=== PATIENT | male | born 1945 | race Caucasian/White ===

== ENCOUNTER → 2016-08-15 | Outpatient (CLI) | payer OTHER ==
[2016-08-15 10:49] LABS: BASOPHILS # (AUTO) 0.03 10*3/UL; BASOPHILS % (AUTO) 0.4 % (0-1); EOSINOPHILS # (AUTO) 0.08 10*3/UL; HEMOGLOBIN 15.6 g/dL (14.0-18.0); MEAN CORPUSCULAR HEMOGLOBIN 30.2 PG (27-31); MEAN CORPUSCULAR HGB CONC 33.9 g/dL (33-37); MEAN CORPUSCULAR VOLUME 89.1 FL (80-90); MEAN PLATELET VOLUME 9.2 FL (7.4-12.2); MONOCYTES # (AUTO) 0.79 10*3/UL (0.3-0.8); NEUTROPHILS # (AUTO) 4.67 10*3/UL; NEUTROPHILS % (AUTO) 59.3 % (50-80); RED BLOOD COUNT 5.16 10^6/uL (4.70-6.10)
[2016-08-15 10:58] LABS: SERUM ALBUMIN 4.5 g/dL (3.5-4.8)
[2016-08-15 11:08] LABS: PLATELET MORPHOLOGY COMMENT NORMAL MORPHOLOGY (NORM); RBC MORPHOLOGY COMMENT NORMAL MORPHOLOGY (NORM); WBC MORPHOLOGY COMMENT NORMAL MORPHOLOGY (NORM)
== END ==
LOC: MOB LAB 10:05
PROVIDERS: ATTEND Surgery
DX: C15.9 Malignant neoplasm of esophagus, unspecified (principal); F17.210 Nicotine dependence, cigarettes, uncomplicated; Z92.3 Personal history of irradiation
CPT/HCPCS: 36415; 80076; 82565; 84520; 85025

== ENCOUNTER 2016-08-22 07:22 | Day surgery (SDC) | payer OTHER ==
[~2016-08-22 07:22] MED LIST: LIDOCAINE 2% VISCOUS(20 MG/1 ML) - 15 ML UD CUP PO ONE; LIDOCAINE HCL/PF 2% (20 MG/ML) - 5 ML SYRINGE ONE; LIDOCAINE W/ SODIUM BICARB 0.5 ML SYR ONE; Lactated Ringers 1,000 ML PRIMARY IV ONE; MIDAZOLAM 5 MG/1 ML ONE; fentaNYL Inj 100 MCG/2 ML VIAL ONE
[2016-08-22] MEDS ORDERED: IPRATROPIUM/ALBUTEROL SULFATE 3 ML NEB NEB ONE ×2 (08:03→15:09)
[2016-08-22] MEDS ORDERED: LIDOCAINE HCL 1%/EPI 1:100,000 - 20 ML VIAL ONE (08:24)
--- NOTE | 2016-08-22 09:03 | GEN.OPNOTE ---
EGD Operative Note Surgery Date: 08/22/16 Preoperative Diagnosis: History of esophageal cancer Postoperative Diagnosis: History of esophageal cancer Procedure: Esophagogastroduodenoscopy with biopsy. Removal of Mediport Surgeon: Praneeth Rivas MD Anesthesia Provider: King Young CRNA Anesthesia Type: Local, MAC Indications: Patient is 1 year out from treatment for esophageal cancer. He esophageal radiation followed by chemotherapy. CT scan shows thickening of the esophagus of the distal esophagus. No evidence of metastatic disease. Findings: Esophagus: Olympus video EGD scope inserted into the posterior pharynx and esophagus under direct visualization. Esophagus appeared be totally normal. Distal esophagus is proximal be 40 cm I did random biopsies. GE Junction : GE junction at 40 cm from incisors Fundus : Scope retroflexed on itself revealing a small hiatal hernia. I did some biopsies of the proximal stomach just below the GE junction Body : Body stomach within normal limits Prepyloric : Prepyloric area within normal limits Small Intestine : First and second portion of duodenum normal A lubricated flexible upper endoscope was inserted and passed through the esophagus and stomach into the duodenum. Estimated Blood Loss (mL): 2 Fluids: Lactated Ringer's please see anesthesia notes in EMR Additional Details: The patient was repositioned. Prepped draped sterile fashion. Infiltrated local anesthetic. I then made an incision over the previous scar. Hemostased electrocautery. I bluntly dissect of the Mediport. Remove the Mediport. Dissected out the capsule around the Mediport. Closed with 4-0 Vicryl continuous running septic restitch.
[2016-08-22 14:47] VITALS: RESP 16; TEMP 96.9
== END 2016-08-22 09:05 | disposition home or self-care (01) ==
LOC: SDSC 07:22
PROVIDERS: ATTEND Surgery
DX: Z85.01 Personal history of malignant neoplasm of esophagus (principal)
CPT/HCPCS: 36590; 43239; 94640; J2704; J3010; J7620; J2001; J2250; J7120